=== PATIENT | female | born 1965 | race Caucasian/White ===

== ENCOUNTER 2018-04-24 10:01 | Day surgery (SDC) | payer OTHER, SELFPAY ==
--- NOTE | 2018-04-24 06:36 | COLE_ITS ---
Date of service: 04/24/18 Time of Service: 12:02 Colonoscopy Report Date of procedure: 04/24/18 Pre-op diagnosis general: Colon Cancer Screening Post-op diagnosis procedure note: other (Diverticulosis) Procedure: Colonoscopy Surgeon: Yanira Ojeda Anesthesia proc note operative: MAC (Chandler Moncada,CLERICAL OFFICE / ASA 2) Estimated blood loss (mL): 3 Pathology: none sent Complications: None Disposition: same day Indications: Mrs. Xiao is a pleasant 53-year-old female who was seen in the office to discuss her first screening colonoscopy. Risks, benefits and complications have been reviewed. Complications include but are not limited to bleeding, pain, perforation, missed small lesion/polyp, sore throat, aspiration and adverse reaction to the medications. Questions were entertained and answered to their satisfaction and they wished to proceed. No guarantees were given or implied. Prep: Miralax/Dulcolax Procedure Start Time: 12:02 Procedure End Time: 12:24 Retraction Time: 13 minutes Findings: Mild diverticulosis mostly right sided Procedure Description: After informed consent was obtained the patient was taken to the procedure room and placed in a left decubitous position. Monitors were applied and a time out was done. The patients name, date of , procedure, allergies to medications and metal in their body was reviewed. The patient was then sedated. Once sedated and comfortable a rectal exam was done. External exam was normal. Internal exam revealed a normal sphincter tone and no palpable masses. The scope was then introduced and retro-flexed. No internal hemorrhoids were identified. The scope was then advanced to the cecum without difficulty. The TI and appendiceal orifice were identified. The prep was adequate. The scope was then slowly retracted over 13 minutes back into the rectum. There was mild diverticulosis in the right colon. The scope was removed and the patient was woken up and taken back to Same day surgery in stable condition. The patient tolerated the procedure well and there were no immediate complications. Follow up: The patient should follow up in 10 years unless they develop changes in bowel habits or other new gastrointestinal complaints.
--- NOTE | 2018-04-24 06:36 | W.PM.DSUDISC ---
Discharge Plan Disposition Patient Disposition: HOME Condition: Good Discharge Details Reason For Visit: Colon Cancer Screening Attending Provider: Yanira Ojeda Primary Care Provider: John Ambrocio Home Meds and New Rx's Prescriptions: Continued albuterol sulfate 90 mcg/actuation aerosol powdr breath activated 2 puff IH Q6H PRNRF: 0 escitalopram oxalate 20 mg tablet 20 mg PO DAILY RF: 0 levothyroxine 125 mcg capsule 125 mcg PO DAILY RF: 0 sumatriptan succinate 50 mg tablet 50 mg PO ONCE RF: 0 levothyroxine 137 mcg capsule 137 mcg PO .COMPLEX RF: 0 Discontinued bisacodyl [Dulcolax (bisacodyl)] 5 mg tablet,delayed release (DR/EC) 5 mg PO ONCE Qty: 4 RF: 0 polyethylene glycol 3350 17 gram/dose powder 255 g PO ONCE Qty: 255 RF: 0 Discharge Instructions Instructions: Colonoscopy (DC), Diverticulosis (DC) Additional Instructions: Findings:mild diverticulosis Follow up:10 years New Medications:none Please call if you develop: fevers >101.5 Nausea or Vomiting Abdominal pain that is not transient DAY SURGERY UNIT POST COLONOSCOPY INSTRUCTIONS 1. Because there will be medication in your system for the next 24 hours, you may feel a little sleepy. Your coordination will be affected. Therefore: a. Do not drive or operate dangerous equipment for 24 hours. b. Do not drink alcohol beverages for 24 hours (not even beer). c. Plan to go home and rest for the day. 2. Generally there are no restrictions on your activity after a day or so has gone by, but you may feel a bit fatigued for a few days. 3 After you arrive home you may have a light meal and return to a normal diet as you can tolerate it without feeling sick to your stomach. 4. After surgery, you may feel pain or discomfort. This should be only transient, but if it persists please contact your doctor. 5. If there are any questions regarding the findings of your procedure, please feel free to contact your doctor. 6. If you are unable to contact your doctor with a problem, contact the hospital at [phone]. 7. Continue all your regular medications unless directed otherwise. I understand the above instructions and have no questions. Signature of Patient or Responsible Adult Escort Date/Time Name of Responsible Adult Escort Signature of Nurse Date/Time Activity:: Activity as Tolerated Diet:: high fiber diet Discharge Orders Discharge Orders: Discharge Order (Routine); Ordered 04/24/18 Ordered By: Yanira Ojeda DS: Diagnosis Discharge Diagnosis (1) Normal colonoscopy: Status: Acute (2) S/P colonoscopy: Status: Acute
[2018-04-24 10:27] VITALS: BP 110/60; PULSE 77; RESP 16; TEMP 36.6; O2SAT 96
[2018-04-24] MEDS: Lactated Ringers 1,000 ML 80 ML IV (10:53)
[2018-04-24 13:11] VITALS: BP 106/53; PULSE 66; RESP 16; TEMP 36.3; O2SAT 100
== END 2018-04-24 13:30 | disposition home or self-care (01) ==
LOC: SUR 10:01
PROVIDERS: PCP Family Medicine; Visit Provider Surgery
PROC: 0DJD8ZZ Inspection of Lower Intestinal Tract, Via Natural or Artificial Opening Endoscopic (ICD-10-PCS; CPT 45378; principal; 2018-04-24 11:45)
DX: Z12.11 Encounter for screening for malignant neoplasm of colon (principal); K57.30 Diverticulosis of large intestine without perforation or abscess without bleeding
CPT/HCPCS: 45378

== ENCOUNTER 2019-05-13 20:14 | Emergency (ER) | payer OTHER, SELFPAY ==
[2019-05-13 20:19] VITALS: BP 139/68; PULSE 90; RESP 20; TEMP 36.8; O2SAT 94
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
[2019-05-13 20:54] VITALS: BP 139/68; PULSE 90; RESP 20; TEMP 36.8; O2SAT 94
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
== END 2019-05-13 20:55 | disposition home or self-care (01) ==
LOC: ER 22:03
PROVIDERS: Emergency Provider Emergency Medicine; PCP Family Medicine
DX: S01.21XA Laceration without foreign body of nose, initial encounter (principal); W22.8XXA Striking against or struck by other objects, initial encounter
CPT/HCPCS: 12011

== ENCOUNTER 2020-02-04 03:20 | Outpatient (CLI) | payer OTHER, SELFPAY ==
[2020-02-04 12:21] LABS: Abs Immature Grans 0.02 10^3/uL (0.0-0.06); Absolute Basophil Count 0.03 10^3/uL (0.0-0.2); Absolute Eosinophil Count 0.23 10^3/uL (0.0-0.7); Absolute Lymphocyte Count 2.65 10^3/uL (1.2-3.4); Absolute Monocyte Count 0.51 10^3/uL (0.1-0.8); Absolute Neutrophil Count 3.85 10^3/uL (1.2-6.7); Basophils % 0.4; Eosinophils % 3.2; HCT 40.7 % (36.0-46.0); HGB 13.1 g/dL (11.2-15.7); Immature Grans % 0.3; Lymphocytes % 36.4; MCH 28.5 pg (27.0-33.0); MCHC 32.2 % (32.0-36.0); MCV 88.5 fL (80-95); MPV 9.8 fL (8.0-11.0); Neutrophils % 52.7; Nucleated RBC 0 %; Platelet Count 354 10^3/uL (130-400); RDW 13.5 % (11.7-14.6); RDW-SD 43.8 fL; WBC 7.29 10^3/uL (4.4-10.8)
[2020-02-04 12:44] LABS: ALT 35 U/L (14-59); AST 27 U/L (15-37); Albumin 3.8 g/dL (3.4-5.0); Alkaline Phosphatase 83 U/L (46-116); Anion Gap 8.3 mmol/L (3-11); BUN 11 mg/dL (7-18); Bilirubin, Total 0.5 mg/dL (0.2-1.0); CO2 26.7 mmol/L (21.0-32.0); CREATININE 0.68 mg/dL (0.55-1.02); Calculated LDL 151 mg/dL (<100); Chloride 106 mmol/L (98-107); Cholesterol 228 mg/dL (<200); Glucose 99 mg/dL (74-106); HDL Cholesterol 57 mg/dL (40-60); Potassium 4.2 mmol/L (3.5-5.1); Sodium 141 mmol/L (136-145); TSH (W/Ref FT4) 0.05 uIU/mL (0.36-3.74); Total Protein 7.1 g/dL (6.4-8.2); Triglyceride 103 mg/dL (<150)
[2020-02-04 13:04] LABS: FREE T4 1.19 ng/dL (0.76-1.46)
== END 2020-02-04 03:40 ==
PROVIDERS: PCP Family Medicine; Visit Provider Family Medicine
DX: E03.9 Hypothyroidism, unspecified (principal); Z13.220 Encounter for screening for lipoid disorders; Z79.899 Other long term (current) drug therapy
CPT/HCPCS: 36415; 80053; 80061; 84439; 84443; 85025

== ENCOUNTER 2020-03-21 00:37 | Outpatient (CLI) | payer OTHER, SELFPAY ==
[2020-03-21 12:54] LABS: TSH (W/Ref FT4) 0.13 uIU/mL (0.36-3.74)
[2020-03-21 13:11] LABS: FREE T4 1.13 ng/dL (0.76-1.46)
== END 2020-03-21 00:57 ==
PROVIDERS: PCP Family Medicine; Visit Provider Family Medicine
DX: E03.9 Hypothyroidism, unspecified (principal)
CPT/HCPCS: 36415; 84439; 84443

== ENCOUNTER 2020-07-31 02:48 | Outpatient (CLI) | payer OTHER, SELFPAY ==
[2020-07-31 12:44] LABS: Calculated LDL 101 mg/dL (<100); Cholesterol 198 mg/dL (<200); HDL Cholesterol 52 mg/dL (40-60); Triglyceride 225 mg/dL (<150)
[2020-07-31 13:08] LABS: FREE T4 1.21 ng/dL (0.76-1.46)
== END 2020-07-31 02:49 | disposition home or self-care (01) ==
LOC: LOS 02:48
PROVIDERS: PCP Family Medicine; Visit Provider Family Medicine
DX: E03.9 Hypothyroidism, unspecified (principal); Z13.220 Encounter for screening for lipoid disorders
CPT/HCPCS: 36415; 80061; 84439; 84443

== ENCOUNTER 2021-02-27 02:01 | Outpatient (CLI) | payer OTHER, SELFPAY ==
[2021-03-02 12:15] LABS: Alpha 1 Antitrypsin,Serum 78 mg/dL (90-200)
== END 2021-02-27 02:02 | disposition home or self-care (01) ==
LOC: LBO 02:01
PROVIDERS: PCP Family Medicine; Visit Provider Family Medicine
DX: Z51.81 Encounter for therapeutic drug level monitoring (principal); Z83.49 Family history of other endocrine, nutritional and metabolic diseases
CPT/HCPCS: 36415; 82103; 84443

== ENCOUNTER → 2022-02-11 18:49 | Outpatient (CLI) | payer OTHER, SELFPAY ==
--- NOTE | 2022-02-11 | DI.RAD_ITS ---
Exam(s) XR WRIST LT COMP NAVICULAR EXAM: XR WRIST LT COMP NAVICULAR CLINICAL HISTORY: PAIN IN LEFT WRIST-[id number]. TECHNIQUE: 2D digital imaging was performed. COMPARISON: No exams were available for comparison FINDINGS: 3 views There is a distal radius fracture which is nondisplaced with the exception of a minimally displaced c omminuted fragment along the posterior aspect of fracture line. Fracture does not appear to obviousl y extend into the radiocarpal joint space. There is no significant ulnar variance. No carpal disloc ation. No significant ulnar variance. Scaphoid and scapholunate distance is normal. Bone density n ormal. No osseous lesions. IMPRESSION: Distal radial fracture as described above. Scaphoid intact. DATA REPOSITORY: RADIATION DOSE DELIVERED:
--- NOTE | 2022-02-11 17:36 | DI.VRAD_ITS ---
PROCEDURE INFORMATION: Exam: XR Left Wrist Exam date and time: 02/11/2022 5:01 PM Age: 56 years old Clinical indication: Other: Pain in left wrist, fell, swelling TECHNIQUE: Imaging protocol: Radiologic exam of the Left wrist. Views: 3 or more views. COMPARISON: No relevant prior studies available. FINDINGS: Bones/joints: There is a transverse/oblique nondisplaced fracture through the distal left radial epiphysis, with an intra-articular component. There may be minimal posterior angulation of the distal articular surface. There is approximately 2 mm posterior displacement of a 9 x 2 mm comminuted fragment along the posterior aspect of the fracture line on the lateral view. There are no subluxations. The joint spaces are maintained. There is minimal degenerative spurring around the 1st carpometacarpal joint. There are no other degenerative changes. Osseous mineralization is normal. There are no inflammatory osseous erosive changes. Soft tissues: There is moderate soft tissue swelling along the dorsum the left wrist. IMPRESSION: 1. Nondisplaced intra-articular distal left radial fracture, as described above. There is a single minimally displaced comminuted fragment along the posterior aspect of the fracture line. 2. No subluxation. Dictated and Authenticated by: Reilly Jeffries MD. Ordering:CHEL Terry MD
== END ==
PROVIDERS: PCP Family Medicine; Visit Provider Physician Assistant Medical
DX: S52.572A Other intraarticular fracture of lower end of left radius, initial encounter for closed fracture (principal); X58.XXXA Exposure to other specified factors, initial encounter
CPT/HCPCS: 73110

== ENCOUNTER 2024-01-13 01:24 | Outpatient (CLI) | payer OTHER, SELFPAY ==
[2024-01-13 12:41] LABS: TSH 1.27 uIU/Ml (0.36-3.74)
== END 2024-01-13 01:25 | disposition home or self-care (01) ==
LOC: LOS 01:24
PROVIDERS: PCP Family Medicine; Visit Provider Family Medicine
DX: E03.9 Hypothyroidism, unspecified (principal)
CPT/HCPCS: 36415; 84443